=== PATIENT | female | born 1980 | race Caucasian/White ===

== ENCOUNTER → 2016-11-22 | Outpatient (CLI) | payer BC ==
[2016-12-08 16:07] LABS: HPV 16 Not Detected (NOTDET); HPV 18 Not Detected (NOTDET)
== END | disposition home or self-care (01) ==
LOC: MW.CHOBGYN 11:04
PROVIDERS: ATTEND Obstetrics & Gynecology
DX: R87.619 Unspecified abnormal cytological findings in specimens from cervix uteri (principal)
CPT/HCPCS: 87624; G0145

== ENCOUNTER 2017-08-14 17:54 | Emergency (ER) | payer BC ==
[2017-08-14] MEDS ORDERED: Metoclopramide 10 MG/2 ML SDV IV ONE (18:35)
[2017-08-14] MEDS ORDERED: diphenhydrAMINE 50 MG/ML SDV IVPUSH ONE (18:35)
[2017-08-14] MEDS ORDERED: Ketorolac 30 MG/ML SDV IVPUSH ONE (18:35)
[2017-08-14] MEDS ORDERED: Sodium Chloride 0.9% 1,000 ML IV ONE (18:35)
[2017-08-14 18:37] VITALS: BP 130/73
--- NOTE | 2017-08-14 18:37 | EDM.PDOC ---
<Kang Carter - Last Filed: 08/14/17 18:41> ED HPI GENERAL MEDICAL PROBLEM - General Chief Complaint: Headache Stated Complaint: PT HAS FLU SYMPTOMS Time Seen by Provider: 08/14/17 18:36 Source of Information: Reports: Patient - History of Present Illness INITIAL COMMENTS - FREE TEXT/NARRATIVE: HISTORY AND PHYSICAL: History of present illness: [Patient with history of intermittent headaches present with migraine type symptoms right unilateral no scotomas but nausea and vomiting associated with the headache no fever chills sweats no chest pain shortness breath dizziness or palpitation no bowel or urine symptoms ] Review of systems: As per history of present illness and below otherwise all systems reviewed and negative. Past medical history: As per history of present illness and as reviewed below otherwise noncontributory. Surgical history: As per history of present illness and as reviewed below otherwise noncontributory. Social history: No reported history of drug or alcohol abuse. Family history: As per history of present illness and as reviewed below otherwise noncontributory. Physical exam: HEENT: Atraumatic, normocephalic, pupils reactive, negative for conjunctival pallor or scleral icterus, mucous membranes moist, throat clear, neck supple, nontender, trachea midline. Lungs: Clear to auscultation, breath sounds equal bilaterally, chest nontender. Heart: S1S2, regular, negative for clicks, rubs, or JVD. Abdomen: Soft, nondistended, nontender. Negative for masses or hepatosplenomegaly. Negative for costovertebral tenderness. Pelvis: Stable nontender. Genitourinary: Deferred. Rectal: Deferred. Extremities: Atraumatic, negative for cords or calf pain. Neurovascular unremarkable. Neuro: Awake, alert, oriented. Cranial nerves II through XII unremarkable. Cerebellum unremarkable. Motor and sensory unremarkable throughout. Exam nonfocal. Diagnostics: [Influenza ] Therapeutics: [1 L normal saline bolus Benadryl 25 mg IV Reglan 10 mg IV Toradol 30 mg IV Patient signed out to Sonia to follow as medications are put in and she'll be redirecting influenza swab pending at this time ] Impression: [Headache] Definitive disposition and diagnosis as appropriate pending reevaluation and review of above. Headache Pain Score (Numeric/FACES): 10 - Related Data Allergies Allergy/AdvReac Type Severity Reaction Status Date / Time No Known Allergies Allergy Verified 11/03/15 12:21 Home Meds: Home Meds Aspirin/Acetaminophen/Caffeine [Migraine Relief Caplet] 2 tab PO ASDIRECTED PRN 11/03/15 [History] Biotin 5,000 mcg PO DAILY 11/03/15 [History] Fish Oil/DHA/EPA [Fish Oil 1,200 MG] 1 tab PO DAILY 11/03/15 [History] Folic Acid 3 tab PO DAILY 11/03/15 [History] Loratadine [Claritin] 1 tab PO DAILY 11/03/15 [History] Magnesium Oxide 1 tab PO DAILY 11/03/15 [History] Methotrexate 8 tab PO ASDIRECTED 11/03/15 [History] NIFEdipine [Nifedipine ER] 30 mg PO DAILY 11/03/15 [History] Norgestimate-Ethinyl Estradiol [Norg-Ee 0.18-0.215-0.25/0.025] 1 tab PO DAILY [History] Omeprazole Magnesium [Prilosec Otc] 1 - 2 tab PO DAILY 11/03/15 [History] Ranitidine [Zantac] 1 tab PO DAILY PRN 11/03/15 [History] Dexlansoprazole [Dexilant] 60 mg PO DAILY 09/05/16 [History] Past Medical History HEENT History: Reports: None Cardiovascular History: Reports: None Respiratory History: Reports: None Gastrointestinal History: Reports: GERD, Hiatal Hernia Genitourinary History: Reports: None 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: Musculoskeletal History: Reports: RA Neurological History: Reports: Migraines Psychiatric History: Reports: None Endocrine/Metabolic History: Reports: None Hematologic History: Reports: None Immunologic History: Reports: None Oncologic (Cancer) History: Reports: None Dermatologic History: Reports: Scleroderma Other Dermatologic History: raynauds syndrome - Past Surgical History Head Surgeries/Procedures: Reports: None Female Surgical History: Reports: Breast Reduction Dermatological Surgical History: Reports: Plastic Surgical Reconstruction/Repair Social & Family History - Tobacco Use Smoking Status *Q: Never Smoker Second Hand Smoke Exposure: No - Recreational Drug Use Recreational Drug Use: No Drug Use in Last 12 Months: No Course - Vital Signs Last Recorded V/S: Last Vital Signs Temp 36.8 C 08/14/17 18:36 Pulse 98 08/14/17 18:36 Resp 18 08/14/17 18:36 BP 130/73 08/14/17 18:36 Pulse Ox 98 08/14/17 18:36 - Orders/Labs/Meds Orders: Active Orders 24 hr Category Date Time Status Sodium Chloride 0.9% [Normal Saline] 1,000 ml Med 08/14/17 18:35 Active IV STAT Medication Orders Sodium Chloride (Normal Saline) 1,000 mls @ 999 mls/hr IV STAT ONE Stop: 08/14/17 19:35 Last Admin: 08/14/17 18:53 Dose: 999 mls/hr Meds: Medications Generic Name Dose Route Start Last Admin Trade Name Freq PRN Reason Stop Dose Admin Sodium Chloride 1,000 mls @ 999 mls/hr 08/14/17 18:35 08/14/17 18:53 Normal Saline IV 08/14/17 19:35 999 mls/hr STAT ONE Administration Discontinued Medications Generic Name Dose Route Start Last Admin Trade Name Freq PRN Reason Stop Dose Admin Diphenhydramine HCl 25 mg 08/14/17 18:35 08/14/17 18:54 Benadryl IVPUSH 08/14/17 18:36 25 mg ONETIME ONE Administration Ketorolac Tromethamine 30 mg 08/14/17 18:35 08/14/17 18:53 Toradol IVPUSH 08/14/17 18:36 30 mg ONETIME ONE Administration Metoclopramide HCl 10 mg 08/14/17 18:35 08/14/17 18:53 Reglan IV 08/14/17 18:36 10 mg ONETIME ONE Administration Departure - Departure Disposition: Home, Self-Care 01 Clinical Impression: Migraine - Discharge Information Instructions: Recurrent Migraine Headache, [id number] Referrals: PCP,None [Primary Care Provider] - Forms: ED Department Discharge Additional Instructions: The following information is given to patients seen in the emergency department who are being discharged to home. This information is to outline your options for follow-up care. We provide all patients seen in our emergency department with a follow-up referral. The need for follow-up, as well as the timing and circumstances, are variable depending upon the specifics of your emergency department visit. If you don't have a primary care physician on staff, we will provide you with a referral. We always advise you to contact your personal physician following an emergency department visit to inform them of the circumstance of the visit and for follow-up with them and/or the need for any referrals to a consulting specialist. The emergency department will also refer you to a specialist when appropriate. This referral assures that you have the opportunity for followup care with a specialist. All of these measure are taken in an effort to provide you with optimal care, which includes your followup. Under all circumstances we always encourage you to contact your private physician who remains a resource for coordinating your care. When calling for followup care, please make the office aware that this follow-up is from your recent emergency room visit. If for any reason you are refused follow-up, please contact the [facility] emergency department at and asked to speak to the emergency department charge nurse. Home and rest Follow-up with your primary care provider If symptoms continue would recommend follow-up with neurology <Sonia Avila - Last Filed: 08/14/17 19:34> ED HPI GENERAL MEDICAL PROBLEM - History of Present Illness Onset: Sudden Duration: Hour(s): Location: Reports: Head Quality: Reports: Throbbing Severity: Moderate Improves with: Reports: None Worsens with: Reports: None ED ROS GENERAL - Review of Systems Review Of Systems: ROS reveals no pertinent complaints other than HPI. ED EXAM, GENERAL - Physical Exam Exam: See Below (see dictation) Departure - Departure Time of Disposition: 19:33 Condition: Good
== END 2017-08-14 19:42 | disposition home or self-care (01) ==
LOC: MW.ED 17:54
DX: G43.909 Migraine, unspecified, not intractable, without status migrainosus (principal); Z79.899 Other long term (current) drug therapy
CPT/HCPCS: 87804; 96361; 96374; 96375; 99284; J1200; J1885; J2765; J7040; 99283

== ENCOUNTER 2024-12-31 22:37 | Emergency (ER) | payer BC ==
[2024-12-31] MEDS ORDERED: Acetaminophen 500 MG Tab PO ONE (22:52)
[2024-12-31 22:56] LABS: BASOPHILS ABSOLUTE AUTO 0.04 K/uL (0.00-0.20); BASOPHILS PERCENT AUTO 0.5 % (0.0-1.0); EOSINOPHILS ABSOLUTE AUTO 0.07 K/uL (0.00-0.45); EOSINOPHILS PERCENT AUTO 0.9 % (0.0-6.0); HEMATOCRIT 35.6 % (37.0-47.0); HEMOGLOBIN 11.5 g/dL (12.0-16.0); IMMATURE GRAN ABSOLUTE AUTO 0.01 K/uL (0.00-0.05); IMMATURE GRAN PERCENT AUTO 0.1 % (0.0-0.4); LYMPHOCYTES ABSOLUTE AUTO 2.49 K/uL (1.00-4.80); LYMPHOCYTES PERCENT AUTO 33.7 % (24.0-44.0); MEAN CORPUSCULAR HEMOGLOBIN 26.2 pg (28.0-32.0); MEAN CORPUSCULAR HGB CONC 32.3 g/dL (32.0-36.0); MEAN CORPUSCULAR VOLUME 81.1 fL (83.0-99.0); MONOCYTES ABSOLUTE AUTO 0.52 K/uL (0.00-0.80); NEUTROPHILS ABSOLUTE AUTO 4.25 K/uL (1.80-7.70); NEUTROPHILS PERCENT AUTO 57.8 % (41.0-71.0); PLATELET COUNT,PLT 311 K/uL (150-400); RED BLOOD CELL COUNT 4.39 M/uL (4.10-5.30); WHITE BLOOD CELL COUNT,WBC 7.38 K/uL (3.9-11.3)
[2024-12-31] MEDS: Sodium Chloride 0.9% 1,000 ML IV ONE (23:04)
[2024-12-31] MEDS: Prochlorperazine 10 MG/2 ML SDV IVPUSH ONE (23:05)
[2024-12-31] MEDS: Ondansetron 4 MG/2 ML SDV IVPUSH ONE (23:06)
[2024-12-31] MEDS: diphenhydrAMINE 50 MG/ML SDV IVPUSH ONE (23:07)
[2024-12-31] MEDS ORDERED: droPERidol 2.5 MG/ML SDV IVPUSH PRN (23:07)
[2024-12-31] MEDS: Ketorolac 30 MG/ML SDV IVPUSH ONE (23:08)
[2024-12-31 23:11] LABS: A/G RATIO 0.9 (0.9-1.6); ALBUMIN 3.7 g/dL (3.4-5.0); BILIRUBIN TOTAL 0.3 mg/dL (0.2-1.0); CALCIUM 8.9 mg/dL (8.5-10.1); CARBON DIOXIDE,CO2 28.4 mmol/L (21.0-32.0); CREATININE 0.8 mg/dL (0.6-1.0); EST CRCL DRUG DOSING (CG) 94.76 mL/min; POTASSIUM,K 3.7 mmol/L (3.5-5.1); PROTEIN TOTAL,TP 7.8 g/dL (6.4-8.2)
[2025-01-01 00:51] VITALS: BP 162/95; PULSE 92
== END 2025-01-01 00:56 | disposition home or self-care (01) ==
LOC: MW.ED 22:37
DX: G43.909 Migraine, unspecified, not intractable, without status migrainosus (principal); R11.2 Nausea with vomiting, unspecified; R03.0 Elevated blood-pressure reading, without diagnosis of hypertension; Z79.899 Other long term (current) drug therapy
CPT/HCPCS: 36415; 70450; 80053; 83735; 84703; 85025; 96361; 96374; 96375; 99284; J0780; J1200; J1885; J2405; J7030; 99283